=== PATIENT | female | born 1990 | race Caucasian/White ===

== ENCOUNTER 2017-08-10 12:24 | Inpatient (IN) | payer OTHER ==
[~2017-08-10] VITALS: Ht 175.3 cm; Wt 81.8 kg
[2017-08-29] VITALS (31 sets, daily range): BP systolic 100–138; BP diastolic 55–91; PULSE 65–106; TEMP 97.4–98.3
[2017-08-29 08:18] LABS: BASO # 0.1 (0.0-0.2); BASO % 0.3 % (0.0-2.0); EOS # 0.1 (0.0-0.7); EOS % 0.5 % (0-4.0); GRAN # 14.2 (1.4-6.5); HEMATOCRIT 32.3 % (37.0-47.0); HEMOGLOBIN 10.6 g/dl (12.5-16.0); LYMPH # 2.6 (1.2-3.4); LYMPH % 14.2 % (20.0-51.0); MEAN CELL VOLUME 93 fl (80.0-100.0); MEAN CORPUSCULAR HEMOGLOBIN 30 pg (27.0-31.0); MEAN CORPUSCULAR HGB CONC 33 g/dl (33.0-37.0); MEAN PLATELET VOLUME 11.6 fl (7.4-10.4); MONO # 1.1 (0.1-0.6); MONO % 6.1 % (1.7-9.3); PLATELET COUNT 196 K/mm3 (130-400); RED BLOOD COUNT 3.49 M/mm3 (4.10-5.30); WHITE BLOOD COUNT 18.2 K/mm3 (4.8-10.8)
[2017-08-30 06:57] LABS: HEMATOCRIT 30.6 % (37.0-47.0)
[2017-08-30 07:00] VITALS: BP 118/76; PULSE 72; TEMP 98.1
[2017-08-30] MEDS ORDERED: IBU600 MG PO (08:26)
== END 2017-08-30 13:00 | disposition home or self-care (01) | DRG 775 ==
LOC: LDR 08-29 06:57 → OB 08-29 06:59 → EDSTATUS 09-01 06:55 → LDRO 09-01 12:23
PROVIDERS: Obstetrics & Gynecology
PROC: 10E0XZZ Delivery of Products of Conception, External Approach (ICD-10-PCS; principal; 2017-08-29)
PROC: 0KQM0ZZ Repair Perineum Muscle, Open Approach (ICD-10-PCS; 2017-08-29)
PROC: 3E033VJ Introduction of Other Hormone into Peripheral Vein, Percutaneous Approach (ICD-10-PCS; 2017-08-29)
DX: O75.89 Other specified complications of labor and delivery (principal); O70.1 Second degree perineal laceration during delivery; Z3A.39 39 weeks gestation of pregnancy; Z37.0 Single live birth
CPT/HCPCS: J2590; J2795; J7120

== ENCOUNTER 2021-09-02 17:07 | Outpatient (CLI) | payer OTHER ==
[~2021-09-02] VITALS: Ht 172.7 cm; Wt 86.8 kg
[~2021-09-02 17:07] MED LIST: IBU600 MG PO
--- NOTE | 2021-09-02 17:41 | NUR ---
1715: Pt. AMBULATORY TO UNIT FROM CLINIC FOR NST/VS PER DR. DAWN. W/ PT IS INTENDED PARENTS DUE TO THIS BEING A SURROGATE . ORIENTED TO ROOM, CLEAN GOWN ON, EFM/TOCO APPLIED AND VS OBTAINED. ASSESSMENTS DONE AND POC DISCUSSED. PT. NOR INTENDED PARENTS HAVE QUESTIONS. WILL CONTINUE TO MONITOR
[2021-09-02 17:45] VITALS: BP 130/85; PULSE 82; TEMP 97.6
--- NOTE | 2021-09-02 18:07 | NUR ---
FHT 1745: UTERINE IRRITABILITY NOTED; RELAXED TONE DURING PALPATION
[2021-09-02 18:15] VITALS: BP 140/73; PULSE 82
[2021-09-02] MEDS ORDERED: PRENATAL TABLET PO (18:28)
[2021-09-02] MEDS ORDERED: OSCAL 500 TAB500 MG PO ×2 (18:28→20:04)
[2021-09-02 18:30] LABS: BASO % 0.3 % (0.0-2.0); EOS # 0.1 K/mm3 (0.0-0.7); EOS % 0.7 % (0-4.0); GRAN # 10.5 K/mm3 (1.4-6.5); GRAN % 70.6 % (42.2-75.2); HEMOGLOBIN 10.4 g/dl (12.5-16.0); LYMPH # 3.2 K/mm3 (1.2-3.4); LYMPH % 21.6 % (20.0-51.0); MEAN CELL VOLUME 88 fl (80.0-100.0); MEAN CORPUSCULAR HEMOGLOBIN 29 pg (27.0-31.0); MEAN CORPUSCULAR HGB CONC 33 g/dl (33.0-37.0); MONO # 0.9 K/mm3 (0.1-0.6); MONO % 6.3 % (1.7-9.3); PLATELET COUNT 226 K/mm3 (130-400); RED BLOOD COUNT 3.54 M/mm3 (4.10-5.30); REDCELL DISTRIBUTION WIDTH-CV 13.2 % (11.5-14.5)
[2021-09-02 18:35] LABS: HEMATOCRIT 31.3 % (37.0-47.0)
[2021-09-02 18:45] VITALS: BP 119/80; PULSE 78
[2021-09-02 18:45] LABS: ALBUMIN 2.6 gm/dL (3.5-5.0); BILIRUBIN,TOTAL 0.2 mg/dL (0.2-1.2); CALCIUM 9.2 mg/dL (8.4-10.2); CREATININE, serum 0.66 mg/dL (0.57-1.11); POTASSIUM 3.7 mmol/L (3.5-4.5); TOTAL PROTEIN 6.1 gm/dL (6.2-8.1)
[2021-09-02 19:15] VITALS: BP 139/84; PULSE 81
[2021-09-02 19:15] LABS: COLLECTION METHOD CLEAN CATCH
[2021-09-02 19:27] LABS: PH 6 (5-8); SQUAMOUS EPITHELIAL None Seen /hpf (0-10); URINE APPEARANCE Clear (CLEAR/HAZY); URINE BACTERIA None Seen (NONE SEEN); URINE BILIRUBIN Negative (NEGATIVE); URINE BLOOD Negative (NEGATIVE); URINE COLOR Straw (YELLOW); URINE GLUCOSE Negative (NEGATIVE); URINE KETONE Negative (NEGATIVE); URINE LEUKOCYTE ESTERASE Negative (NEGATIVE); URINE NITRATE Negative (NEGATIVE); URINE PROTEIN(semi-quant) Negative (NEGATIVE); URINE RBC None Seen /hpf (0-2); URINE UROBILINOGEN Negative (NEGATIVE)
[2021-09-02 19:32] VITALS: BP 121/83; PULSE 83
--- NOTE | 2021-09-02 20:01 | NUR ---
1953: DISCHARGE TEACHING GIVEN. PT. AND INTENDED PARENTS VERBALIZED UNDERSTANDING. NO QUESTIONS AT THIS TIME. ESCORTED TO FRONT OF UNIT. AMBULATORY AND PT. IN STABLE CONDITION.
== END 2021-09-02 19:54 | disposition home or self-care (01) ==
LOC: LDRO 17:07 → LDR 17:37 → LDRO 19:54
PROVIDERS: Obstetrics & Gynecology
DX: O36.8330 Maternal care for abnormalities of the fetal heart rate or rhythm, third trimester, not applicable or unspecified (principal); Z3A.37 37 weeks gestation of pregnancy
CPT/HCPCS: OP

== ENCOUNTER 2021-09-12 23:52 | Inpatient (IN) | payer OTHER ==
[~2021-09-12] VITALS: Ht 172.7 cm; Wt 85.5 kg
[~2021-09-12 23:52] MED LIST changes: +OSCAL 500 TAB500 MG PO; +PRENATAL TABLET PO
[2021-09-13] VITALS (8 sets, daily range): BP systolic 120–164; BP diastolic 60–95; PULSE 65–81; TEMP 97.8–98.8
--- NOTE | 2021-09-13 | NUR ---
Ambulatory to unit for labor assessment, accompanied by surrogate parents. Pt reports contractions started @ 2200, got stronger on the way to the hospital. Oriented to room, monitor, plan of care. Pt requesting epidural. JAMIN 7cm.
--- NOTE | 2021-09-13 00:15 | NUR ---
Pt stating "I really need to push" deep breathing well with coaching. SVE complete, presenting part descending without pushing effort by pt. 0017 female by this RN. Baby to pt's abd. 0018 Cord no longer pulsing, clamped and cut by this RN. 0019 Dr Castro into room. Perineal inspection reveals 0 lacerations. 0022 Placenta delivers spont and intact with 3 vessell cord. Pitocin 30units in 500cc LR piggybacked into mainline LR and infusing 333cc/hr per in pump. Family loving and excited about .
[2021-09-13 01:39] LABS: BASO # 0.1 K/mm3 (0.0-0.2); BASO % 0.4 % (0.0-2.0); EOS # 0.2 K/mm3 (0.0-0.7); GRAN # 11.3 K/mm3 (1.4-6.5); GRAN % 66.5 % (42.2-75.2); HEMOGLOBIN 11.3 g/dl (12.5-16.0); LYMPH # 4.2 K/mm3 (1.2-3.4); LYMPH % 24.9 % (20.0-51.0); MEAN CELL VOLUME 88 fl (80.0-100.0); MEAN CORPUSCULAR HEMOGLOBIN 29 pg (27.0-31.0); MEAN CORPUSCULAR HGB CONC 33 g/dl (33.0-37.0); MEAN PLATELET VOLUME 11.4 fl (7.4-10.4); MONO # 1.1 K/mm3 (0.1-0.6); MONO % 6.6 % (1.7-9.3); PLATELET COUNT 229 K/mm3 (130-400); RED BLOOD COUNT 3.86 M/mm3 (4.10-5.30); REDCELL DISTRIBUTION WIDTH-CV 13.7 % (11.5-14.5)
[2021-09-13 01:41] LABS: HEMATOCRIT 33.8 % (37.0-47.0)
--- NOTE | 2021-09-13 02:00 | NUR ---
IV to INT. Up to bathroom with steady gait, voids moderate amount, performs own pericare. Ambulates to room. Oriented to plan of care.
[2021-09-13] MEDS ORDERED: IBU800 M1 PO (08:55)
--- NOTE | 2021-09-13 16:55 | NUR ---
1600 REVIEWED DISCHARGE INSTRUCTIONS WITH PT. DENIES QUESTIONS OR NEEDS. 1645 PT DISCHARGED AMBULATORY TO HER CAR.
== END 2021-09-13 16:45 | disposition home or self-care (01) | DRG 807 ==
LOC: LDRO 23:52 → LDR 09-13 → OB 09-13 02:00
PROVIDERS: Obstetrics & Gynecology; ADMIT Obstetrics & Gynecology
PROC: 10E0XZZ Delivery of Products of Conception, External Approach (ICD-10-PCS; principal; 2021-09-13)
DX: O62.3 Precipitate labor (principal); Z37.0 Single live birth; Z3A.39 39 weeks gestation of pregnancy; Z23 Encounter for immunization
CPT/HCPCS: J2590; J7120